=== PATIENT | female | born 1955 | race Caucasian/White ===

== ENCOUNTER → 2016-10-17 | Outpatient (CLI) | payer OTHER ==
[~2016-10-17] MED LIST: ALBU8.5H; AMLO10TA62 PO; BETAMETHASONE 6mg/ml INJECTION IM ONE; BUPIVACAINE 0.25% (2.5mg/ml) INJ 30ml SDV ONE; CETI10CA19 PO; FLUT16SP12 NS; HORMONE SL; IOTHALAMATE MEGLUMINE 60% (600mg/ml) 30ml INJ IV ONE; LIDOCAINE 1% (10mg/ml) 5ml VIAL ONE; LISI-127 PO; MELO7.5T12 PO; ONDA4TAB4 PO; TAPE50TA7 PO
--- NOTE | 2016-10-17 16:37 | DI ---
Indication:ITS.REASON: M25.551 Procedure:US DRAIN/INJ. JOINT/BURSA W/US RIGHT BICIPITAL GROOVE INJECTION WITH ULTRASOUND GUIDANCE: After discussing the details of the procedure, including the risks, the patient wished to proceed. Informed consent was obtained. A preprocedural timeout was performed to confirm the correct patient and procedure. Using aseptic technique, local lidocaine anesthetic, and ultrasound guidance throughout, a 25-gauge infiltrating needle was directed to the superficial margin of the bicipital tendon sheath. 3 cc 0.25% bupivacaine and 1 cc betamethasone were slowly instilled around the bicipital groove. The needle was removed. There was no complication. Following this, the patient left the imaging department in stable condition. Impression: Technically successful right bicipital groove injection for therapeutic purposes. Maxx Marks RPA/ABDOUL performed this under my personal supervision. .
== END ==
LOC: IMA 13:10
PROVIDERS: ATTEND Physician Assistant Surgical
DX: M25.511 Pain in right shoulder (principal)
CPT/HCPCS: 20611; J0702